=== PATIENT | female | born 1985 | race African-American/Black ===

== ENCOUNTER 2019-06-14 01:48 | Emergency (ER) | payer OTHER ==
[~2019-06-14] VITALS: Ht 162.6 cm; Wt 126.6 kg
[2019-06-14 01:56] VITALS: Ht 162.6 cm; Wt 126.6 kg
[2019-06-14 04:49] VITALS: BP 147/84
== END 2019-06-14 04:49 | disposition home or self-care (01) ==
LOC: ED 01:48
DX: J40 Bronchitis, not specified as acute or chronic (principal)
CPT/HCPCS: 87804; J7613; J7644

== ENCOUNTER 2019-10-19 09:52 | Emergency (ER) | payer OTHER, SELFPAY ==
[~2019-10-19] VITALS: Ht 162.6 cm; Wt 122.5 kg
[2019-10-19 09:58] VITALS: Ht 162.6 cm; Wt 122.5 kg
[2019-10-19 13:43] VITALS: BP 122/74
== END 2019-10-19 13:43 | disposition home or self-care (01) ==
LOC: ED 09:52
DX: R07.89 Other chest pain (principal); R06.02 Shortness of breath; Z03.818 Encounter for observation for suspected exposure to other biological agents ruled out; Z98.890 Other specified postprocedural states
CPT/HCPCS: 87804; Q0092